=== PATIENT | male | born 1960 | race Caucasian/White ===

== ENCOUNTER 2016-10-22 19:26 | Emergency (ER) | payer OTHER ==
--- NOTE | 2016-10-22 19:49 | UCPHY ---
H & P Patient Type: New HPI/ROS: CHIEF COMPLAINT: Sore throat, cough. HISTORY OF PRESENT ILLNESS: The patient is a 56-year-old male who presents with a sore throat and cough for the past 6 hours. Cough is unproductive. He does have a history of pneumonia but this is less severe. He denies vomiting, diarrhea, nausea, fever, lymphadenopathy, sinus headache. He has recent sick contact with his son who has had a URI for a week, was also here, who is strep negative.. He did not get a flu shot this year. REVIEW OF SYSTEMS: Constitutional: No fever, no chills. Eyes: No discharge. ENT: As above. Cardiovascular: No chest pain, no palpitations. Respiratory: As above. Musculoskeletal: No back pain. Skin: No rashes. Past Medical/Surgical History: Sleep apnea, ADHD. Social History: Here with son. Physical Exam: Gen: Well developed, well nourished. Nontoxic. HEENT: Normocephalic. Ears: TMs are clear. Hearing normal. Eyes: PERRL. No conjunctival injection or pallor. no jaundice. Nose: No nasal discharge. Sinuses are nontender. Throat: Membranes are moist. Oropharynx is without erythema or exudate. Normal phonation. Lungs: Good air entry into both lungs. No rales rhonchi or wheezes. No air hunger. No respiratory distress. Skin: Good color, without pallor. There is no diaphoresis. Skin is warm and dry , without diaphoresis. [Intact without rashes] Constitutional: Initial Vital Signs Temperature (C) 36.8 C 10/22/16 19:50 Heart Rate 116 H 10/22/16 19:50 Respiratory Rate 16 10/22/16 19:50 Blood Pressure 116/86 H 10/22/16 19:50 O2 Sat (%) 94 10/22/16 19:50 O2 Delivery Mode Room Air Allergies/Adverse Reactions: No Known Allergies Allergy (Unverified 10/22/16 19:55) Home Medications: Medication Instructions Recorded CAMERON 10/22/16 Medical Decision Making ED Course/Re-evaluation: I discussed with the patient expectant management in the setting of a rapid strep negative Differential Diagnosis: Diagnostic considerations include, but are not limited to, the following: URI, sinusitis, pharyngitis, otitis media, pneumonia, allergy. Departure - Departure Disposition: Home, Routine, Self-Care Clinical Impression: Upper respiratory infection Qualifiers: URI type: unspecified viral URI Qualified Code(s): J06.9 - Acute upper respiratory infection, unspecified; B97.89 - Other viral agents as the cause of diseases classified elsewhere Condition: Good Instructions: Upper Respiratory Infection (ED) Additional Instructions: Use [id number] Afrin spray for nasal congestion for the next 3-5 days only. Take 4tsp Delsym for cough as we discussed, if the cough is keeping you up at night. Take 650mg Tylenol every 4-6 hours as needed for pain and fever. Drink plenty of fluids and be sure to get rest. Follow up with your primary care provider in the next 5-7 days if symptoms are not improving. Return for any serious worsening of condition. Referrals: Johny Box MD [Primary Care Provider] - As per Instructions - PQRS PQRS Measurement: Not applicable. Report Scribed for: Jamaal Zamora Report Scribed by: Jorge Farooq Date of Report: 10/22/16 Time of Report: 19:49 Physician Review and Approval Statement: 10/22/16 19:49 Portions of this note were transcribed by a medical microbiologist. I personally performed a history, physical exam, medical decision making, and confirmed accuracy of information the transcribed note.
[2016-10-22 20:02] VITALS: BP 116/86; PULSE 116; RESP 16; TEMP 98.2; O2SAT 94
== END 2016-10-22 20:51 | disposition home or self-care (01) ==
LOC: CED 19:26
DX: J06.9 Acute upper respiratory infection, unspecified (principal)
CPT/HCPCS: 87880-PO; G0463-PO